=== PATIENT | male | born 1965 | race Caucasian/White ===

== ENCOUNTER 2016-08-22 12:38 | Emergency (ER) | payer OTHER, MEDICAID ==
[~2016-08-22 12:38] MED LIST: LOMO5S PO; ROBITUSSIN AC PO; ZITHTAB PO; ZOFR4TAB3 SL
[2016-08-22 12:46] VITALS: BP 154/110; PULSE 98; RESP 20; TEMP 97.9; O2SAT 96
[2016-08-22] MEDS ORDERED: CLON.5 PO (12:53)
[2016-08-22] MEDS ORDERED: GERD MED (12:53)
[2016-08-22] MEDS ORDERED: MUSCLE SPASM MED (12:53)
[2016-08-22] MEDS ORDERED: RLS MED (12:53)
[2016-08-22] MEDS ORDERED: SODIUM CHLORIDE 0.9% FLUSH 5 ML FLUSH IVF PRN (13:00)
--- NOTE | 2016-08-22 13:04 | PD ---
HPI Chief Complaint: Respiratory Symptoms Time Seen by Provider: 12:43 Travel History International Travel<30 days: No Contact w/Intl Traveler<30days: No Traveled to known affect area: No History of Present Illness HPI Patient 51-year-old male presents with shortness of breath on and off for the past 2 weeks. Patient states that he has been having significant shortness of breath particularly at work when he tries to lift heavy objects or move things around. Patient has not seen another physician for this at this time. Denies any chest pain denies any abdominal pain. Patient states she's also been feeling some dizzy spells at work and feeling like he is about to pass out. When he was feeling stars and had to lower himself down to the ground before he passed out.. Nonsmoker no high blood pressure no high cholesterol. No history of heart disease. 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) GERD: Yes Musculoskeletal: Yes (BACK PROBLEMS) Immunizations Current: No Myocardial Infarction: No Past Surgical History Abdominal Surgery: Yes (Hernia) Appendectomy: Yes Social History Alcohol Use: Yes (2 beers daily) Tobacco Use: No (Quit) Substance Use: No Allergies-Medications (Allergen,Severity, Reaction): Coded Allergies: No Known Allergies (Verified , 08/22/16) Reported Meds & Prescriptions Reported Meds & Active Scripts Active Reported Klonopin (Clonazepam) 0.5 Mg Tab Unknown Dose PO BID [Gerd Med] [Muscle Spasm Med] [Rls Med] Review of Systems Except as stated in HPI: all other systems reviewed are Neg Physical Exam Narrative GENERAL: Well-developed well-nourished no apparent distress SKIN: Warm and dry. HEAD: Atraumatic. Normocephalic. EYES: Pupils equal and round. No scleral icterus. No injection or drainage. ENT: No nasal bleeding or discharge. Mucous membranes pink and moist. NECK: Trachea midline. No JVD. CARDIOVASCULAR: Regular rate and rhythm. No murmur appreciated. 2+ bilateral equal pulses in all 4 extremities RESPIRATORY: No accessory muscle use. Clear to auscultation. Breath sounds equal bilaterally. GASTROINTESTINAL: Abdomen soft, non-tender, nondistended. Hepatic and splenic margins not palpable. MUSCULOSKELETAL: No obvious deformities. No clubbing. No cyanosis. No edema. NEUROLOGICAL: Awake and alert. No obvious cranial nerve deficits. Motor grossly within normal limits. Normal speech. PSYCHIATRIC: Appropriate mood and affect; insight and judgment normal. Data Data Last Documented VS Vital Signs Date Time Temp Pulse Resp B/P Pulse Ox O2 Delivery O2 Flow Rate FiO2 08/22/16 15:06 103 20 149/103 99 Nasal Cannula 4 08/22/16 12:46 97.9 Orders Electrocardiogram (08/22/16 12:57) Ckmb (Isoenzyme) Profile (08/22/16 12:57) Complete Blood Count With Diff (08/22/16 12:57) Comprehensive Metabolic Panel (08/22/16 12:57) Magnesium (Mg) (08/22/16 12:57) Prothrombin Time / Inr (Pt) (08/22/16 12:57) Act Partial Throm Time (Ptt) (08/22/16 12:57) Troponin I (08/22/16 12:57) Chest, Single Ap (08/22/16 12:57) Ecg Monitoring (08/22/16 12:57) Bilateral Bp Monitoring (08/22/16 12:57) Iv Access Insert/Monitor (08/22/16 12:57) Oximetry (08/22/16 12:57) Oxygen Administration (08/22/16 12:57) Sodium Chloride 0.9% Flush (Ns Flush) (08/22/16 13:00) Ct Pulmonary Angiogram (08/22/16 12:57) CKMB (08/22/16 13:15) CKMB% (08/22/16 13:15) Iohexol 350 Inj (Omnipaque 350 Inj) (08/22/16 14:01) Labs Laboratory Tests Test 08/22/16 13:15 White Blood Count 4.8 TH/MM3 Red Blood Count 4.76 MIL/MM3 Hemoglobin 14.8 GM/DL Hematocrit 44.1 % Mean Corpuscular Volume 92.7 FL Mean Corpuscular Hemoglobin 31.0 PG Mean Corpuscular Hemoglobin 33.5 % Concent Red Cell Distribution Width 12.4 % Platelet Count 330 TH/MM3 Mean Platelet Volume 6.4 FL Neutrophils (%) (Auto) 54.6 % Lymphocytes (%) (Auto) 29.8 % Monocytes (%) (Auto) 10.5 % Eosinophils (%) (Auto) 4.3 % Basophils (%) (Auto) 0.8 % Neutrophils # (Auto) 2.7 TH/MM3 Lymphocytes # (Auto) 1.4 TH/MM3 Monocytes # (Auto) 0.5 TH/MM3 Eosinophils # (Auto) 0.2 TH/MM3 Basophils # (Auto) 0.0 TH/MM3 CBC Comment DIFF FINAL Differential Comment Prothrombin Time 10.3 SEC Prothromb Time International 0.9 RATIO Ratio Activated Partial 30.4 SEC Thromboplast Time Sodium Level 138 MEQ/L Potassium Level 4.1 MEQ/L Chloride Level 103 MEQ/L Carbon Dioxide Level 24.2 MEQ/L Anion Gap 11 MEQ/L Blood Urea Nitrogen 13 MG/DL Creatinine 0.80 MG/DL Estimat Glomerular Filtration 102 ML/MIN Rate Random Glucose 99 MG/DL Calcium Level 9.0 MG/DL Magnesium Level 2.2 MG/DL Total Bilirubin 0.4 MG/DL Aspartate Amino Transf 67 U/L (AST/SGOT) Alanine Aminotransferase 99 U/L (ALT/SGPT) Alkaline Phosphatase 106 U/L Total Creatine Kinase 313 U/L Creatine Kinase MB 5.0 NG/ML Creatine Kinase MB % 1.6 % Troponin I LESS THAN 0.02 NG/ML Total Protein 7.6 GM/DL Albumin 3.8 GM/DL MDM Medical Decision Making Medical Screen Exam Complete: Yes Emergency Medical Condition: Yes Interpretation(s) EKG shows normal sinus rhythm with a rate of 95, normal axis normal R-wave progression. No concerning ST T changes intervals within normal limits. This normal EKG. Differential Diagnosis Presyncope, anemia, PE, ACS, AMI Narrative Course Patient was roomed in emergency department, he appears well in no apparent distress. No chest pain but does endorse shortness of breath on exertion accompanied with some presyncopal symptoms. Patient states he came very close to passing out today after lifting heavy objects. Initial workup including EKG troponin CT PE electrolytes H&H all within normal limits. Discussed with the patient that his symptoms are yet unexplained and given his syncope he is not in the low risk syncope category by symphysis discussing to be rules and I suggested that he be observed for possible ACS equivalent. The patient states that he understands the need for stress testing but needs to slat pickler his daughter home has no other way home from daycare this afternoon. I discussed with him that if he chooses to leave he needs to understand that there are risks that he could have cardiovascular collapse or disability prior to having stress test. He verbalized understanding and acceptance of the risks. He has attempted to call and find summary also take care of his daughter for him has been unsuccessful. He did sign formal AMA papers. He states if he can he will return later this afternoon. Diagnosis Primary Impression: Syncope Qualified Code: R55 - Syncope, unspecified syncope type Additional Impression: SOB (shortness of breath) Disposition: 07 AGAINST MEDICAL ADVICE Condition: Lane Cruz MD Aug 22, 2016 13:04 Condition: Lane Cruz MD Aug 22, 2016 13:04
[2016-08-22 13:20] VITALS: O2SAT 96
[2016-08-22 13:26] LABS: AUTOMATED NEUTROPHIL # 2.7 TH/MM3 (1.8-7.7); BASOPHIL % 0.8 % (0.0-2.0); EOSINOPHIL # 0.2 TH/MM3 (0-0.4); EOSINOPHIL % 4.3 % (0.0-4.0); HEMATOCRIT 44.1 % (39.0-51.0); HEMO FLAGS DIFF FINAL; LYMPH % 29.8 % (9.0-44.0); LYMPHOCYTE # 1.4 TH/MM3 (1.0-4.8); MEAN CELL VOLUME 92.7 FL (80.0-100.0); MEAN CORPUSCULAR HGB CONC 33.5 % (32.0-36.0); MONO % 10.5 % (0.0-8.0); NEUT % 54.6 % (16.0-70.0); PLATELET COUNT 330 TH/MM3 (150-450); RED BLOOD COUNT 4.76 MIL/MM3 (4.50-5.90); RED CELL DISTRIBUTION WIDTH 12.4 % (11.6-17.2); WHITE BLOOD COUNT 4.8 TH/MM3 (4.0-11.0)
[2016-08-22 13:28] VITALS: BP_SYST 148; BP_SYST 151; BP_DIAS 95; BP_DIAS 99; PULSE 95; RESP 20; O2SAT 94
[2016-08-22 13:34] LABS: CHLORIDE 103 MEQ/L (98-107); POTASSIUM 4.1 MEQ/L (3.5-5.1); SODIUM (NA) 138 MEQ/L (136-145)
[2016-08-22 13:38] LABS: ANION GAP 11 MEQ/L (5-15); APTT (PATIENT) 30.4 SEC (24.3-30.1); BICARBONATE 24.2 MEQ/L (21.0-32.0); BLOOD UREA NITROGEN 13 MG/DL (7-18); INTERNATIONAL NORMALIZED RATIO 0.9 RATIO; MAGNESIUM 2.2 MG/DL (1.5-2.5); PROTHROMBIN TIME - PATIENT 10.3 SEC (9.8-11.6)
[2016-08-22 13:41] LABS: ALT (GPT) 99 U/L (12-78); AST (GOT) 67 U/L (15-37); GLOMERULAR FILTRATION RATE 102 ML/MIN (>89)
[2016-08-22 13:43] LABS: TOTAL BILIRUBIN ADULT 0.4 MG/DL (0.2-1.0)
[2016-08-22 13:44] LABS: ALKALINE PHOSPHATASE 106 U/L (45-117); CREATINE KINASE 313 U/L (39-308)
[2016-08-22] MEDS ORDERED: IOHEXOL 350 MG/ML 10 ML VIAL (for RAD DIAG) IV ONE (14:01)
--- NOTE | 2016-08-22 14:08 | RADHPO ---
EXAM DATE/TIME: 08/22/2016 13:23 [facility] COMPARISON: No previous studies available for comparison. INDICATIONS : Shortness of breath. MEDICAL HISTORY : None. SURGICAL HISTORY : None. ENCOUNTER: Initial ACUITY: 2 weeks PAIN SCORE: 0/10 LOCATION: Bilateral chest FINDINGS: A single view of the chest demonstrates the lungs to be symmetrically aerated without evidence of mas s, infiltrate or effusion. The cardiomediastinal contours are unremarkable. Osseous structures are intact. CONCLUSION: No evidence of acute cardiopulmonary disease. Robert Lepe MD on August 22, 2016 at 14:06 Board Certified Radiologist. This report was verified electronically.
--- NOTE | 2016-08-22 14:23 | RADHPO ---
EXAM DATE/TIME: 08/22/2016 13:52 [facility] COMPARISON: No previous studies available for comparison. INDICATIONS : Short of breath. IV CONTRAST: 65 cc Omnipaque 350 (iohexol) IV RADIATION DOSE: 20.27 CTDIvol (mGy) MEDICAL HISTORY : Hypercholesterolemia. SURGICAL HISTORY : Appendectomy. ENCOUNTER: Initial ACUITY: 1 day PAIN SCALE: 0/10 LOCATION: chest TECHNIQUE: Volumetric scanning of the chest was performed using a pulmonary embolism protocol MIP images were re constructed. Using automated exposure control and adjustment of the mA and/or kV according to patien t size, radiation dose was kept as low as reasonably achievable to obtain optimal diagnostic quality images. FINDINGS: PULMONARY ARTERIES: No filling defects are seen in the pulmonary arteries through the segmental level. LUNGS: There is no consolidation or pneumothorax . No concerning pulmonary nodule is visualized. PLEURAE: There is no pleural thickening or pleural effusion. MEDIASTINUM: There is good visualization of the great vessels of the middle mediastinum. No evidence of mediastin al or hilar adenopathy/mass. MUSCULOSKELETAL: Within normal limits for patient age. MISCELLANEOUS: The visualized upper abdominal organs demonstrate no acute abnormality. CONCLUSION: No pulmonary embolus or other acute abnormality demonstrated. Robert Lepe MD on August 22, 2016 at 14:20 Board Certified Radiologist. This report was verified electronically.
[2016-08-22 15:06] VITALS: BP 149/103
--- NOTE | 2016-08-23 10:48 | EKG ---
Date Performed: 08/22/2016 Time Performed: 12:48:26 PTAGE: 51 years EKG: Sinus rhythm Normal ECG PREVIOUS TRACING : 07/22/2011 08.04 Compared to prior tracing no significant change DOCTOR: Cullen Ferreira Interpretating Date/Time 08/23/2016 10:46:34
[2016-08-23] MEDS ORDERED: PANT40TA3 PO (18:04)
[2016-08-23] MEDS ORDERED: FLUO20CA4 PO (18:04)
[2016-08-23] MEDS ORDERED: CYCL1TAB29 PO (18:04)
[2016-08-23] MEDS ORDERED: AMLO5TAB2 PO (18:09)
== END 2016-08-22 15:08 | disposition left against medical advice (07) ==
LOC: PHED 12:38
DX: R55 Syncope and collapse (principal); R06.02 Shortness of breath; E78.00 Pure hypercholesterolemia, unspecified
CPT/HCPCS: 71010; 71275; 80053; 82550; 82552; 83735; 84484; 85025; 85610; 85730; 93005; 99285; Q9967

== ENCOUNTER 2016-08-22 15:35 | Observation (INO) | payer OTHER, MEDICAID ==
[~2016-08-22] VITALS: Ht 172.7 cm; Wt 92.8 kg
[~2016-08-22 15:35] MED LIST changes: +CLON.5 PO; +GERD MED; +MUSCLE SPASM MED; +RLS MED
[2016-08-22 15:38] VITALS: BP 140/102; PULSE 87; RESP 16; TEMP 98.3; O2SAT 94
--- NOTE | 2016-08-22 15:44 | PD ---
HPI Chief Complaint: Respiratory Symptoms Time Seen by Provider: 15:41 Travel History International Travel<30 days: No Contact w/Intl Traveler<30days: No Traveled to known affect area: No History of Present Illness HPI This 51-year-old male with a history of shortness of breath and presyncopal symptoms with exertion. He was seen by me earlier today and left AGAINST MEDICAL ADVICE and take care of his daughter. I discussed with him at the end of his workup that his syncopal episodes with shortness of breath could be ACS equivalent recommended observation status. He returns be placed in observation status this time. Please see my earlier note for further history. 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) GERD: Yes Musculoskeletal: Yes (BACK PROBLEMS) Immunizations Current: No Myocardial Infarction: No Past Surgical History Abdominal Surgery: Yes (Hernia) Appendectomy: Yes Social History Alcohol Use: Yes (2 beers daily) Tobacco Use: No (Quit) Substance Use: No Allergies-Medications (Allergen,Severity, Reaction): Coded Allergies: No Known Allergies (Verified , 08/22/16) Reported Meds & Prescriptions Reported Meds & Active Scripts Active Reported Klonopin (Clonazepam) 0.5 Mg Tab Unknown Dose PO BID [Gerd Med] [Muscle Spasm Med] [Rls Med] Review of Systems Except as stated in HPI: all other systems reviewed are Neg Physical Exam Narrative GENERAL: Well-developed well-nourished no apparent distress SKIN: Warm and dry. HEAD: Atraumatic. Normocephalic. EYES: Pupils equal and round. No scleral icterus. No injection or drainage. ENT: No nasal bleeding or discharge. Mucous membranes pink and moist. NECK: Trachea midline. No JVD. CARDIOVASCULAR: Regular rate and rhythm. No murmur appreciated. 2+ bilateral equal pulses in all 4 extremities. RESPIRATORY: No accessory muscle use. Clear to auscultation. Breath sounds equal bilaterally. GASTROINTESTINAL: Abdomen soft, non-tender, nondistended. Hepatic and splenic margins not palpable. MUSCULOSKELETAL: No obvious deformities. No clubbing. No cyanosis. No edema. NEUROLOGICAL: Awake and alert. No obvious cranial nerve deficits. Motor grossly within normal limits. Normal speech. PSYCHIATRIC: Appropriate mood and affect; insight and judgment normal. Data Data Last Documented VS Vital Signs Date Time Temp Pulse Resp B/P Pulse Ox O2 Delivery O2 Flow Rate FiO2 08/22/16 15:38 98.3 87 16 140/102 94 Orders Electrocardiogram (08/22/16 ) Troponin I (08/22/16 15:41) Place In Observation (08/22/16 16:59) Activity Bed Rest With Brp (08/22/16 16:59) Vital Signs (Adult) Q4H (08/22/16 16:59) Cardiac Rhythm .As Directed (08/22/16 16:59) ^ Notify Dr: Other .PRN (08/22/16 16:59) ^ Notify Dr. Parameters (08/22/16 16:59) Resp Oxygen Nasal Cannula (08/22/16 ) Ckmb (Isoenzyme) Profile (08/22/16 19:59) Troponin I (08/22/16 19:59) ^ Obtain (08/22/16 16:59) Sodium Chloride 0.9% Flush (Ns Flush) (08/22/16 17:00) Sodium Chloride 0.9% Flush (Ns Flush) (08/22/16 21:00) Acetaminophen (Tylenol) (08/22/16 17:00) Ondansetron Inj (Zofran Inj) (08/22/16 17:00) Famotidine (Pepcid) (08/22/16 21:00) Nitroglycerin Sl (Nitrostat Sl) (08/22/16 17:00) Aspirin (Aspirin) (08/23/16 09:00) Temazepam (Restoril) (08/22/16 17:00) Hot Walker / Telemetry INES.Q8H (08/22/16 16:59) Admit Order (Ed Use Only) (08/22/16 ) CKMB (08/22/16 20:25) CKMB% (08/22/16 20:25) Labs Laboratory Tests Test 08/22/16 15:45 Troponin I LESS THAN 0.02 NG/ML MDM Medical Decision Making Medical Screen Exam Complete: Yes Emergency Medical Condition: Yes Interpretation(s) EKG shows normal sinus rhythm normal axis and normal hour progression. No concerning ST-T changes. Intervals within normal limits. This is normal EKG. Differential Diagnosis ACS, AMI, syncope, low H&H. Narrative Course Patient was re-roomed in the emergency department, he is ambulating and he continues to appear well. Discussed with him the plan is not altered and well send repeat EKG and troponin. The patient was discussed with Dr. Larson for observation status for consideration of stress testing. Diagnosis Primary Impression: Syncope Qualified Code: R55 - Syncope, unspecified syncope type Additional Impression: SOB (shortness of breath) Admitting Information Admitting Physician Requests: Observation Condition: Stable Lane Sawyer MD Aug 22, 2016 15:44
[2016-08-22] MEDS ORDERED: NITROGLYCERIN 0.4 MG SL 25 TABS/BTL SL PRN (17:00)
[2016-08-22] MEDS ORDERED: ACETAMINOPHEN 500 MG CPLT PO PRN (17:00)
[2016-08-22] MEDS ORDERED: ONDANSETRON HCL 4 MG/2 ML VIAL IV PRN (17:00)
[2016-08-22] MEDS ORDERED: TEMAZEPAM 15 MG CAP PO PRN (17:00)
[2016-08-22] MEDS ORDERED: SODIUM CHLORIDE 0.9% FLUSH 5 ML FLUSH IVF PRN (17:00)
[2016-08-22 17:23] VITALS: BP 144/98; PULSE 80; RESP 16; O2SAT 96
[2016-08-22 18:09] VITALS: O2SAT 95
[2016-08-22 18:45] VITALS: BP 139/97; PULSE 94; RESP 20; TEMP 98.4; O2SAT 96
[2016-08-22 20:00] VITALS: BP 139/97; PULSE 81; PULSE 94; RESP 20; TEMP 98.4; O2SAT 96
[2016-08-22 20:15] VITALS: O2SAT 98
[2016-08-22 21:00] LABS: CREATINE KINASE 235 U/L (39-308)
[2016-08-22 21:13] LABS: CKMB 3.8 NG/ML (0.5-3.6)
[2016-08-22 21:59] LABS: CHLORIDE 100 MEQ/L (98-107); POTASSIUM 3.7 MEQ/L (3.5-5.1); SODIUM (NA) 137 MEQ/L (136-145)
[2016-08-22 22:03] LABS: ANION GAP 12 MEQ/L (5-15); BICARBONATE 25.2 MEQ/L (21.0-32.0); BLOOD UREA NITROGEN 12 MG/DL (7-18)
[2016-08-22 22:05] LABS: ALT (GPT) 87 U/L (12-78)
[2016-08-22 22:06] LABS: AST (GOT) 46 U/L (15-37); GLOMERULAR FILTRATION RATE 87 ML/MIN (>89)
[2016-08-22 22:07] LABS: TOTAL BILIRUBIN ADULT 0.5 MG/DL (0.2-1.0)
[2016-08-22 22:08] LABS: ALKALINE PHOSPHATASE 98 U/L (45-117)
[2016-08-22] MEDS: FAMOTIDINE 20 MG TAB PO SCH (23:03)
[2016-08-22] MEDS: CYCLOBENZAPRINE HCL 10 MG TAB PO PRN (23:03)
[2016-08-22] MEDS: KETOROLAC TROMETHAMINE 60 MG/2 ML (IM) VIAL IM PRN (23:04)
[2016-08-22] MEDS: SODIUM CHLORIDE 0.9% FLUSH 5 ML FLUSH IVF SCH (23:05)
[2016-08-22 23:23] LABS: CREATINE KINASE 218 U/L (39-308)
[2016-08-22 23:36] LABS: CKMB 3.4 NG/ML (0.5-3.6)
[2016-08-23] VITALS: BP 146/94; PULSE 72; RESP 20; TEMP 97.1; O2SAT 98
[2016-08-23 04:00] VITALS: BP 147/98; PULSE 66; RESP 20; TEMP 97; O2SAT 96
[2016-08-23 08:00] VITALS: BP 135/100; PULSE 71; RESP 20; TEMP 98.3; O2SAT 96
[2016-08-23 08:53] VITALS: O2SAT 98
[2016-08-23] MEDS: SODIUM CHLORIDE 0.9% FLUSH 5 ML FLUSH IVF SCH (09:00)
[2016-08-23] MEDS ORDERED: ASPIRIN 325 MG TAB PO SCH (09:00)
[2016-08-23] MEDS: FAMOTIDINE 20 MG TAB PO SCH (09:00)
[2016-08-23] MEDS: CYCLOBENZAPRINE HCL 10 MG TAB PO PRN (09:21)
[2016-08-23 09:40] LABS: HDL CHOLESTEROL 60.5 MG/DL (40.0-60.0)
--- NOTE | 2016-08-23 10:48 | EKG ---
Date Performed: 08/22/2016 Time Performed: 15:49:36 PTAGE: 51 years EKG: Sinus rhythm Normal ECG PREVIOUS TRACING : 08/22/2016 12.48 Compared to prior tracing no significant change DOCTOR: Cullen Ferreira Interpretating Date/Time 08/23/2016 10:46:42
--- NOTE | 2016-08-23 10:48 | EKG ---
Date Performed: 08/22/2016 Time Performed: 22:43:06 PTAGE: 51 years EKG: Sinus rhythm Normal ECG PREVIOUS TRACING : 08/22/2016 15.49 Compared to prior tracing no significant change DOCTOR: Cullen Ferreira Interpretating Date/Time 08/23/2016 10:46:49
[2016-08-23] MEDS ORDERED: FLUoxetine HCL 20 MG CAP PO SCH (11:00)
[2016-08-23] MEDS ORDERED: PANTOPRAZOLE SOD 40 MG DELAYED RELEASE TAB PO SCH (11:00)
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
[2016-08-23 12:00] VITALS: BP 136/97; PULSE 84; RESP 18; TEMP 98; O2SAT 96
[2016-08-23] MEDS: KETOROLAC TROMETHAMINE 60 MG/2 ML (IM) VIAL IM PRN (14:17)
[2016-08-23 15:55] VITALS: RESP 18
[2016-08-23] MEDS ORDERED: REGADENOSON INJ 0.4 MG/5 ML SYR IV ONE (16:06)
--- NOTE | 2016-08-23 17:47 | RADHPO ---
EXAM DATE/TIME: 08/23/2016 16:25 [facility] COMPARISON: No previous studies available for comparison. INDICATIONS : Chest pressure, shortness of breath and presyncope. Angina. DOSE: 25.9 mCi Tc99m Myoview at stress. 8.1 mCi Tc99m Myoview at rest. 0.4 mg Lexiscan STRESS SYMPTOMS: Shortness of breath, right chest pressure and nausea. EJECTION FRACTION: 51% MEDICAL HISTORY : Hypertension. Smoking history. SURGICAL HISTORY : Inguinal hernia repair. Appendectomy. ENCOUNTER: Initial ACUITY: 1 day PAIN SCALE: 2/10 LOCATION: Bilateral chest TECHNIQUE: The patient underwent pharmacologic stress with infusion of prescribed dose. Continuous ECG tracing was monitored during stress. Gated SPECT imaging was performed after stress and conventional SPECT i maging was performed at rest. The examination was performed on a SPECT/CT scanner, both attenuation and non-corrected datasets were reviewed. FINDINGS: DISTRIBUTION: The maximum perfused segment at stress is in the anterolateral wall. PERFUSION STUDY: The pattern of perfusion at stress is within normal limits. GATED STUDY: There is intact wall motion and thickening without hypokinetic or dyskinetic segments. CONCLUSION: 1. No significant reversibility to suggest ischemia. 2. Normal wall motion with ejection fraction 51% RISK CATEGORY: Low (<1% Annual Mortality Rate) Bud Alba MD on August 23, 2016 at 17:44 Board Certified Radiologist. This report was verified electronically.
[2016-08-23] MEDS ORDERED: FLUO20CA4 PO (18:04)
[2016-08-23] MEDS ORDERED: PANT40TA3 PO (18:04)
[2016-08-23] MEDS ORDERED: CYCL1TAB29 PO (18:04)
[2016-08-23] MEDS ORDERED: AMLO5TAB2 PO (18:09)
[2016-08-23] MEDS ORDERED: amLODIPine BESYLATE 5 MG TAB PO SCH (18:15)
== END 2016-08-23 18:45 | disposition home or self-care (01) ==
LOC: PHED 15:35 → PHEDA 17:06 → PH3A 18:42
PROVIDERS: ADMIT Legal Medicine; ATTEND Legal Medicine
DX: R55 Syncope and collapse (principal); R06.09 Other forms of dyspnea; K21.9 Gastro-esophageal reflux disease without esophagitis; F41.9 Anxiety disorder, unspecified; G25.81 Restless legs syndrome; F32.9 Major depressive disorder, single episode, unspecified; E78.00 Pure hypercholesterolemia, unspecified; Z87.891 Personal history of nicotine dependence
CPT/HCPCS: 78452; 80053; 80061; 82550; 82552; 84484; 93005; 93017; 99285; A9502; G0378; J1885; J2785

== ENCOUNTER 2017-08-13 07:47 | Emergency (ER) | payer MEDICAID, OTHER ==
[~2017-08-13] VITALS: Ht 172.7 cm; Wt 100.0 kg
[~2017-08-13 07:47] MED LIST changes: +AMLO5TAB2 PO; +CYCL10TA PO; +FLUO20CA4 PO; -LOMO5S PO; +PANT40TA3 PO; -ROBITUSSIN AC PO; -ZITHTAB PO; -ZOFR4TAB3 SL
[2017-08-13 07:53] VITALS: BP 131/89; PULSE 87; RESP 18; TEMP 97.3; O2SAT 96
[2017-08-13] MEDS ORDERED: ATOR20TA15 PO (08:11)
[2017-08-13] MEDS ORDERED: MONT10TA4 PO (08:11)
[2017-08-13] MEDS ORDERED: ESCI20TA PO (08:11)
[2017-08-13] MEDS ORDERED: PRED50 PO (08:11)
[2017-08-13] MEDS ORDERED: PANT40TA3 PO (08:11)
[2017-08-13] MEDS ORDERED: ROPI5TAB PO (08:11)
[2017-08-13] MEDS ORDERED: FLUO20CA12 PO (08:11)
--- NOTE | 2017-08-13 08:12 | PD ---
HPI Chief Complaint: Edema Time Seen by Provider: 08:01 Travel History International Travel<30 days: No Contact w/Intl Traveler<30days: No Traveled to known affect area: No History of Present Illness HPI This 52-year-old male is complaining of pain in his right knee. He says that he twisted his knee 2 weeks ago. Since then having pain. The pain is a lot worse when he bends the knee. He has been able to walk but he has to use a crutch to help support himself. Sometimes he feels like he is getting about him. He is not aware of any previous injury to the knee. He does have a history of arthritis in his back. 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) Gastrointestinal Disorders: Yes GERD: Yes Headaches: Yes Musculoskeletal: Yes (BACK PROBLEMS) Neurologic: Yes Psychiatric: Yes Respiratory: Yes (COPD) Immunizations Current: No Migraines: Yes Myocardial Infarction: No Past Surgical History Abdominal Surgery: Yes (Hernia, APPENDECTOMY) Appendectomy: Yes Other Surgery: Yes Social History Alcohol Use: Yes (occ) Tobacco Use: No (Quit) Substance Use: No Allergies-Medications (Allergen,Severity, Reaction): Coded Allergies: No Known Allergies (Verified Adverse Reaction, Unknown, 08/13/17) Reported Meds & Prescriptions Reported Meds & Active Scripts Active Amlodipine (Amlodipine Besylate) 5 Mg Tab 5 Mg PO DAILY PRN Reported Escitalopram (Escitalopram Oxalate) 20 Mg Tab 20 Mg PO DAILY Prednisone 50 Mg Tab 50 Mg PO DAILY Ropinirole 5 Mg Tab 5 Mg PO HS Pantoprazole (Pantoprazole Sodium) 40 Mg Tab 40 Mg PO DAILY Montelukast (Montelukast Sodium) 10 Mg Tab 10 Mg PO HS Atorvastatin (Atorvastatin Calcium) 20 Mg Tab 20 Mg PO HS Fluoxetine (Fluoxetine HCl) 20 Mg Capsule 20 Mg PO DAILY Review of Systems General / Constitutional: No: Fever, Chills Eyes: No: Diploplia HENT: No: Headaches, Lightheadedness Cardiovascular: No: Chest Pain or Discomfort, Palpitations Respiratory: No: Cough, Shortness of Breath Gastrointestinal: No: Vomiting, Diarrhea Genitourinary: No: Urgency, Frequency Musculoskeletal: Positive: Myalgias, Arthralgias, Pain Skin: No Rash, No Itching Neurologic: No: Weakness Psychiatric: No: Anxiety Physical Exam Narrative GENERAL: Well-developed male SKIN: Focused skin assessment warm/dry. HEAD: Atraumatic. Normocephalic. EYES: Pupils equal and round. No scleral icterus. No injection or drainage. ENT: No nasal bleeding or discharge. Mucous membranes pink and moist. NECK: Trachea midline. No JVD. MUSCULOSKELETAL: No obvious deformities. No clubbing. No cyanosis. No edema. Examination of the right knee shows some mild edema. There is no obvious varus or valgus instability. Skin is intact. Anterior and posterior drawers are negative. He does have pain with flexion extension of the knee. There is no warmth or erythema NEUROLOGICAL: Awake and alert. No obvious cranial nerve deficits. Motor grossly within normal limits. Normal speech. PSYCHIATRIC: Appropriate mood and affect; insight and judgment normal. Data Data Last Documented VS Vital Signs Date Time Temp Pulse Resp B/P (MAP) Pulse Ox O2 Delivery O2 Flow Rate FiO2 08/13/17 07:53 97.3 87 18 131/89 (103) 96 Orders Orders Knee, Complete (4vws) (08/13/17 08:08) MDM Medical Decision Making Medical Screen Exam Complete: Yes Emergency Medical Condition: Yes Medical Record Reviewed: Yes Differential Diagnosis Differential includes arthritis of the knee, meniscus damage, internal derangement, fracture Narrative Course X-ray is negative. Symptoms are most consistent with a torn meniscus. I will recommend a knee immobilizer and prescription for Mobic. He should call for orthopedic follow-up Diagnosis Primary Impression: Internal derangement of right knee Scripts Meloxicam (Mobic) 15 Mg Tab 15 MG PO DAILY for 20 Days, #20 TAB 0 Refills Prov: Sergo Clarke MD 08/13/17 Disposition: 01 DISCHARGE HOME Condition: Stable Sergo Clarke MD Aug 13, 2017 08:12
[2017-08-13] MEDS ORDERED: MOBI15TA PO (08:52)
--- NOTE | 2017-08-13 08:53 | RADRPT ---
EXAM DATE/TIME: 08/13/2017 08:16 [facility] COMPARISON: No previous studies available for comparison. INDICATIONS : Right knee pain & swelling after twisting it 2 weeks ago. Progressively getting worse & has become di fficult to bear weight & painful bending it. MEDICAL HISTORY : Hypercholesterolemia. Chronic obstructive pulmonary disease. Gastroesophageal reflux disease. Art hritis. SURGICAL HISTORY : Appendectomy. Hernia repair. ENCOUNTER: Initial ACUITY: 2 weeks PAIN SCORE: 8/10 LOCATION: Right knee FINDINGS: Four view examination of the right knee demonstrates no evidence of fracture or dislocation. Bony mi neralization is normal. Mild osteoarthritis. No fracture. Small effusion and soft tissue swelling.. CONCLUSION: 1. Soft tissue swelling and small joint effusion. 2. No fracture seen. Suresh Ba MD on August 13, 2017 at 8:52 Board Certified Radiologist. This report was verified electronically.
== END 2017-08-13 09:21 | disposition home or self-care (01) ==
LOC: PHED 07:47
DX: M23.91 Unspecified internal derangement of right knee (principal); X50.1XXA Overexertion from prolonged static or awkward postures, initial encounter; M46.90 Unspecified inflammatory spondylopathy, site unspecified; E78.00 Pure hypercholesterolemia, unspecified; F32.9 Major depressive disorder, single episode, unspecified; K21.9 Gastro-esophageal reflux disease without esophagitis; J44.9 Chronic obstructive pulmonary disease, unspecified
CPT/HCPCS: 73564; 99283

== ENCOUNTER 2018-04-01 12:29 | Observation (INO) ==
[2018-04-01] MEDS ORDERED: Morphine Inj 4 MG/ML Vial IV.PUSH ONE ×2 (13:15→14:47)
[2018-04-01] MEDS ORDERED: Famotidine PF Inj 20 MG/2 ML Vial IV.PUSH ONE (13:15)
[2018-04-01] MEDS ORDERED: Aluminum/Magnesium/Simethacone Susp 30 ML UDC PO ONE (13:15)
[2018-04-01 13:46] LABS: Baso # (Auto) 0.1 th/mm3 (0.0-0.2); Baso % (Auto) 1.2 % (0.0-2.0); Eos # (Auto) 0.3 th/mm3 (0.0-0.4); Eos % (Auto) 4.1 % (0.0-4.0); Hematocrit 42.5 % (39.0-51.0); Lymph # (Auto) 2.3 th/mm3 (1.0-4.8); Lymph % (Auto) 36.7 % (9.0-44.0); Mean Corpuscular HGB Conc 35.3 % (32.0-36.0); Mean Corpuscular Hemoglobin 32.2 pg (27.0-34.0); Mean Corpuscular Volume 91.2 fL (80.0-100.0); Mean Platelet Volume 6.3 fL (7.0-11.0); Mono # (Auto) 0.5 th/mm3 (0.0-0.9); Mono % (Auto) 8.2 % (0.0-8.0); Neut # (Auto) 3.1 th/mm3 (1.8-7.7); Neut % (Auto) 49.8 % (16.0-70.0); Platelet Count 331 th/mm3 (150-450); Red Blood Count 4.65 mil/mm3 (4.50-5.90); Red Cell Distribution Width 13.4 % (11.6-17.2); White Blood Count 6.2 th/mm3 (4.0-11.0)
--- NOTE | 2018-04-01 13:53 | XR ---
EXAM DATE: 04/01/2018 1:15 PM EDT AGE/SEX: 52 years / Male INDICATIONS: Chest pain. CLINICAL DATA: This is the patient's initial encounter. Patient reports that signs and symptoms have been present for 1 day and indicates a pain score of 4/10. MEDICAL/SURGICAL HISTORY: Hypercholesterolemia. Chronic obstructive pulmonary disease. Gastro esophageal reflux disease. Appendectomy. COMPARISON: POI, XR CHEST PA AND LAT, 07/02/2017. . FINDINGS: No significant new focal pleural or parenchymal opacities. The cardiomediastinal contours are unremar kable. Osseous structures are intact. CONCLUSION: 1. No acute abnormality or significant interval change. Electronically signed by: Sukhi Shipman MD 04/01/2018 1:51 PM EDT
[2018-04-01 13:54] LABS: Prothrombin Time 10.5 sec (9.8-11.6)
[2018-04-01 14:04] LABS: Albumin 3.8 g/dL (3.4-5.0); Anion Gap 10 meq/L (5-15); Aspartate Aminotransferase 62 U/L (15-37); Blood Urea Nitrogen 11 mg/dL (7-18); Calcium 8.6 mg/dL (8.5-10.1); Carbon Dioxide 25.7 meq/L (21.0-32.0); Chloride 105 meq/L (98-107); Glomerular Filtration Rate 89 mL/min (>89); Glucose,Random 105 mg/dL (74-106); Potassium 3.6 meq/L (3.5-5.1); Sodium 141 meq/L (136-145)
[2018-04-01 14:05] LABS: Alanine Aminotransferase 101 U/L (12-78)
[2018-04-01 14:09] LABS: Alkaline Phosphatase 102 U/L (45-117); Total Protein 7.4 g/dL (6.4-8.2)
[2018-04-01 14:11] LABS: Creatine Kinase 82 U/L (39-308)
--- NOTE | 2018-04-01 14:49 | ED ---
HPI General Chief complaint: Chest Pain Stated complaint: Chest Pain Time Seen by Provider: 04/01/18 13:05 Source: patient Mode of arrival: ambulatory Limitations: no limitations History of Present Illness HPI narrative: Patient is a 52 year old male who comes in complaining of chest pain. He says it started about 2 hours prior to arrival. He localizes the pain to the center of the chest. He says it is a stabbing pain and he has never had pain like this before. He denies shortness of breath. He denies nausea or vomiting. He says it started while he was sitting on the couch today. Severity is moderate. Related Data Home Medications Medication Instructions Recorded Confirmed albuterol sulfate [ProAir HFA] 90 mcg INHALATION DAILY 04/01/18 04/01/18 amlodipine 5 mg PO DAILY 04/01/18 04/01/18 atorvastatin 10 mg PO HS 04/01/18 04/01/18 fluoxetine 40 mg PO BID 04/01/18 04/01/18 pantoprazole 40 mg PO DAILY 04/01/18 04/01/18 Allergies Allergy/AdvReac Type Severity Reaction Status Date / Time No Known Allergies Allergy Verified 04/01/18 13:03 Review of Systems ROS: all other systems reviewed are negative Constitutional Denies chills and Denies fever(s) ENT Denies dizziness Cardiovascular Reports chest pain and Denies dyspnea Respiratory Denies cough Gastrointestinal Denies nausea and Denies vomiting Musculoskeletal Denies myalgias and Denies arthralgias Integumentary/Breasts Denies sores and Denies wounds Neurologic Denies focal weakness and Denies numbness [facility] Medical History Medical History COPD (chronic obstructive pulmonary disease) (Acute) GERD (gastroesophageal reflux disease) (Acute) High blood pressure (Acute) High cholesterol (Acute) Social History Social History Substance History: No History of Abuse Smoking Status: Never smoker How Often Do You Have a Drink Containing Alcohol: 4 or more times a week Recent Travel in [facility] within the Last 8 Weeks: No Recent Out of Country Travel within the Last 8 Weeks: No Immunization History Tetanus Immunization: <5 Years Exam Narrative Exam Narrative: GENERAL: Awake and alert, in no acute distress. SKIN: Focused skin assessment warm/dry. No wounds or signs of infection. HEAD: Atraumatic. Normocephalic. EYES: Pupils equal and round. No scleral icterus. ENT: Mucous membranes pink and moist. NECK: Trachea midline. No JVD. CARDIOVASCULAR: Regular rate and rhythm. No murmur appreciated. RESPIRATORY: No accessory muscle use. Clear to auscultation. Breath sounds equal bilaterally. GASTROINTESTINAL: Abdomen soft, nondistended. Mild tenderness to palpation of the epigastric area, no rebound or guarding. MUSCULOSKELETAL: No obvious deformities. No clubbing. No cyanosis. No edema. NEUROLOGICAL: Awake and alert. No obvious cranial nerve deficits. Motor grossly within normal limits. Normal speech. PSYCHIATRIC: Appropriate mood and affect; insight and judgment normal. Course Initial Documented Vital Signs Temperature 98.3 F 04/01/18 12:48 Pulse Rate 83 04/01/18 12:48 Respiratory Rate 22 04/01/18 12:48 Blood Pressure 176/100 H 04/01/18 12:48 Pulse Oximetry 100 04/01/18 12:48 Last Documented Vital Signs Temperature 98.3 F 04/01/18 12:48 Pulse Rate 83 04/01/18 12:48 Respiratory Rate 22 04/01/18 12:48 Blood Pressure 176/100 H 04/01/18 12:48 Pulse Oximetry 100 04/01/18 12:48 Medical Decision Making [facility] Narrative Medical decision making narrative: Patient is a 52-year-old male who comes in chest pain. Exam shows tenderness to the epigastric area, however patient says the pain is in the middle of his chest. IV established, labs sent. First troponin is negative. Labs show no acute abnormalities. Patient was given aspirin and nitro by EMS. Given morphine and GI cocktail here. He says he had some improvement with the morphine, but the pain is coming back. Given additional dose of morphine. Patient be placed in chest pain center for further management. Medical Screen Exam Complete: Yes Emergency Medical Condition: Yes Differential Diagnosis Differential Diagnosis: ACS versus NSTEMI versus STEMI versus GERD versus gastritis Medical Records Medical records reviewed: Yes I reviewed the patient's medical records. Lab Data Lab results reviewed: Yes I reviewed the patient's lab results. Result diagrams: 04/01/18 13:30 04/01/18 13:30 Lab Results 04/01/18 04/01/18 04/01/18 Range/Units 13:30 13:30 13:30 WBC 6.2 (4.0-11.0) th/mm3 RBC 4.65 (4.50-5.90) mil/mm3 Hgb 15.0 (13.0-17.0) gm/dL Hct 42.5 (39.0-51.0) % MCV 91.2 (80.0-100.0) fL MCH 32.2 (27.0-34.0) pg MCHC 35.3 (32.0-36.0) % RDW 13.4 (11.6-17.2) % Plt Count 331 (150-450) th/mm3 MPV 6.3 L (7.0-11.0) fL Neut % (Auto) 49.8 (16.0-70.0) % Lymph % (Auto) 36.7 (9.0-44.0) % [place] % (Auto) 8.2 H (0.0-8.0) % Eos % (Auto) 4.1 H (0.0-4.0) % Baso % (Auto) 1.2 (0.0-2.0) % Neut # (Auto) 3.1 (1.8-7.7) th/mm3 Lymph # (Auto) 2.3 (1.0-4.8) th/mm3 [place] # (Auto) 0.5 (0.0-0.9) th/mm3 Eos # (Auto) 0.3 (0.0-0.4) th/mm3 Baso # (Auto) 0.1 (0.0-0.2) th/mm3 WBC Differential . Differential Comment Auto diff final PT 10.5 (9.8-11.6) sec INR 1.0 Ratio APTT (24.3-30.1) sec Sodium 141 (136-145) meq/L Potassium 3.6 (3.5-5.1) meq/L Chloride 105 (98-107) meq/L Carbon Dioxide 25.7 (21.0-32.0) meq/L Anion Gap 10 (5-15) meq/L BUN 11 (7-18) mg/dL Creatinine 0.90 (0.60-1.30) mg/dL Estimated GFR 89 (>89) mL/min Random Glucose 105 (74-106) mg/dL Calcium 8.6 (8.5-10.1) mg/dL Total Bilirubin 0.2 (0.2-1.0) mg/dL AST 62 H (15-37) U/L ALT 101 H (12-78) U/L Alkaline Phosphatase 102 (45-117) U/L Total Creatine Kinase 82 (39-308) U/L Troponin I Less than 0.02 L (0.02-0.05) ng/mL B-Natriuretic Peptide (0-100) pg/mL Total Protein 7.4 (6.4-8.2) g/dL Albumin 3.8 (3.4-5.0) g/dL 04/01/18 04/01/18 Range/Units 13:30 13:30 WBC (4.0-11.0) th/mm3 RBC (4.50-5.90) mil/mm3 Hgb (13.0-17.0) gm/dL Hct (39.0-51.0) % MCV (80.0-100.0) fL MCH (27.0-34.0) pg MCHC (32.0-36.0) % RDW (11.6-17.2) % Plt Count (150-450) th/mm3 MPV (7.0-11.0) fL Neut % (Auto) (16.0-70.0) % Lymph % (Auto) (9.0-44.0) % Chase % (Auto) (0.0-8.0) % Eos % (Auto) (0.0-4.0) % Baso % (Auto) (0.0-2.0) % Neut # (Auto) (1.8-7.7) th/mm3 Lymph # (Auto) (1.0-4.8) th/mm3 [place] # (Auto) (0.0-0.9) th/mm3 Eos # (Auto) (0.0-0.4) th/mm3 Baso # (Auto) (0.0-0.2) th/mm3 WBC Differential Differential Comment PT (9.8-11.6) sec INR Ratio APTT 25.8 (24.3-30.1) sec Sodium (136-145) meq/L Potassium (3.5-5.1) meq/L Chloride (98-107) meq/L Carbon Dioxide (21.0-32.0) meq/L Anion Gap (5-15) meq/L BUN (7-18) mg/dL Creatinine (0.60-1.30) mg/dL Estimated GFR (>89) mL/min Random Glucose (74-106) mg/dL Calcium (8.5-10.1) mg/dL Total Bilirubin (0.2-1.0) mg/dL AST (15-37) U/L ALT (12-78) U/L Alkaline Phosphatase (45-117) U/L Total Creatine Kinase (39-308) U/L Troponin I (0.02-0.05) ng/mL B-Natriuretic Peptide 6 (0-100) pg/mL Total Protein (6.4-8.2) g/dL Albumin (3.4-5.0) g/dL Imaging Data Radiologist's impression: Chest X-Ray 04/01/18 13:15 CONCLUSION: 1. No acute abnormality or significant interval change. ECG Data EKG Prior to Arrival: Yes Attestation: I personally reviewed and interpreted this ECG as follows: Interpretation: ECG shows normal sinus rhythm at a rate of 86, no ST elevation or depression, normal intervals Discharge Plan Discharge Disposition Patient Disposition: 30 Still Patient Discharge Condition Condition: Stable Discharge Details Diagnosis: Atypical chest pain Physicians Team ED Provider: Chika Tyler Primary Care Provider: Primary Care DavisiCatherine Rxs /Orders / Referrals /Forms Prescriptions: No Action fluoxetine 40 mg Capsule 40 mg PO BID RF: 0 amlodipine 5 mg Tablet 5 mg PO DAILY RF: 0 albuterol sulfate [ProAir HFA] 90 mcg/actuation Hfa Aerosol Inhaler 90 mcg Inhalation DAILY RF: 0 pantoprazole [address] For Susp In Packet 40 mg PO DAILY RF: 0 atorvastatin 10 mg tablet 10 mg PO HS RF: 0 Discharge Instructions Patient Printed Instructions: Chest Pain (ED) Status ED Status: In Room
[2018-04-01] MEDS ORDERED: ALPRAZolam 0.25 MG Tablet PO PRN (15:50)
[2018-04-01] MEDS ORDERED: Acetaminophen 500 MG Tablet PO PRN (15:51)
[2018-04-01] MEDS ORDERED: Ketorolac Inj 30 MG/ML (IVP) Vial IV.PUSH ONE ×2 (16:00→22:00)
--- NOTE | 2018-04-01 16:05 | P.HPCA ---
History of Present Illness Primary Care Physician: No Primary Care Physician Chief Complaint: Chest pain History of Present Illness: This is a 52-year-old male with history of hypertension, hyperlipidemia, COPD, past history of tobacco abuse that presents to ED via [facility] with complaint of chest discomfort patient states discomfort began about 2 hours prior to arrival. Using nothing in particularly strenuous. Describes as a sharp stabbing discomfort. It is still there at this time. The area is tender. Cannot recall trauma. Denies associated shortness of breath however he states he has COPD and gets short of breath easily. Denies nausea or diaphoresis. Cannot recall prior cardiac workup. Denies family history of CAD. History of hypertension, hyperlipidemia, COPD, GERD, past history of tobacco abuse. Denies diabetes and known CAD. Denies family history of CAD. He quit smoking in 2010 but prior that he smoked between three-quarter pack to 1 pack a series daily for about 30 years. Has occasional alcohol. Denies illicit drug use. - Diagnosis (1) Chest pain (2) Hypertension (3) Hyperlipidemia (4) COPD (chronic obstructive pulmonary disease) (5) GERD (gastroesophageal reflux disease) Review of Systems General: Patient denies fevers, chills, and recent travel. HEENT: Patient denies headache, sore throat, difficulty swallowing. Cardiovascular: Has the chest discomfort as mentioned above. Denies sensation of heart beating rapidly or irregularly. No syncope. Respiratory: Denies shortness of breath or inspirational chest discomfort. Denies coughing wheezing or hemoptysis. GI: Patient denies nausea, vomiting, diarrhea, abdominal pain, bloody stools. Musculoskeletal: Patient denies joint pain or edema. Denies calf pain or edema. Neurovascular: Patient denies numbness, tingling, weakness in extremities. Denies headache. Endocrine: Denies polyuria and polydipsia. Hematologic: Denies easy bruising. Skin: Denies rash or itching. PMFSH - History History Provided By: Patient - Medical History Medical History: Medical History (Last Reviewed 04/01/18 @ 14:51 by Chika Tyler MD) COPD (chronic obstructive pulmonary disease) GERD (gastroesophageal reflux disease) High blood pressure High cholesterol - Tobacco History Smoking Status: Never smoker - Alcohol History How Often Do You Have a Drink Containing Alcohol: 4 or more times a week - Substance Use History Substance History: No History of Abuse - Travel History Recent Travel in the [place] Within the Last 8 Weeks: No Recent Travel Out of the Country Within the Last 8 Weeks: No - Immunization History Tetanus Immunization: <5 Years Medications and Allergies Active Medications: Active Medications Acetaminophen (Tylenol) 500 mg PO Q6H PRN PRN Reason: pain scale 1-5 Hydrocodone Bitart/Acetaminophen (Palmer 7.5/325) 1 tab PO Q6H PRN PRN Reason: pain scale 6-10 Albuterol (Duoneb Neb (Prn)) 1 ampul NEB Q4HR NEB PRN PRN Reason: SHORTNESS OF BREATH/WHEEZING Alprazolam (Xanax) 0.25 mg PO Q8H PRN PRN Reason: ANXIETY Amlodipine Besylate (Norvasc) 5 mg PO DAILY LISA Aspirin (Aspirin) 325 mg PO DAILY LISA Clonidine HCl (Catapres) 0.1 mg PO Q6H PRN PRN Reason: SBP >165 OR DBP > 110 Ketorolac Tromethamine (Toradol Inj) 30 mg IV.PUSH ONCE ONE Stop: 04/01/18 15:39 Non-Formulary Medication (Atorvastatin) 10 mg PO HS LISA Non-Formulary Medication (Fluoxetine [Fluoxetine]) 40 mg PO BID LISA Ondansetron HCl (Zofran Inj) 4 mg IV.PUSH Q6H PRN PRN Reason: NAUSEA Pantoprazole Sodium (Protonix) 40 mg PO DAILY LISA Sodium Chloride (Ns Flush) 2 ml IV.FLUSH UNSCH PRN PRN Reason: FLUSH AFTER USING IV ACCESS Sodium Chloride (Ns Flush) 2 ml IV.FLUSH BID LISA Sodium Chloride (Ns Flush) 2 ml IV.FLUSH PRN PRN PRN Reason: FLUSH AFTER USING IV ACCESS Allergies Allergy/AdvReac Type Severity Reaction Status Date / Time No Known Allergies Allergy Verified 04/01/18 13:03 Home Medications Medication Instructions Recorded Confirmed Type albuterol sulfate [ProAir HFA] 90 mcg INHALATION DAILY 04/01/18 04/01/18 History amlodipine 5 mg PO DAILY 04/01/18 04/01/18 History atorvastatin 10 mg PO HS 04/01/18 04/01/18 History fluoxetine 40 mg PO BID 04/01/18 04/01/18 History pantoprazole 40 mg PO DAILY 04/01/18 04/01/18 History Exam Vital signs: Vital Signs 04/01/18 12:48 Temperature 98.3 F Pulse Rate 83 Respiratory Rate 22 Blood Pressure 176/100 H Pulse Oximetry 100 Intake & Output 03/31/18 04/01/18 04/01/18 18:59 06:59 18:59 Weight 100 kg Narrative: GENERAL: This is a well-nourished, well-developed patient, in no apparent distress. Patient speaks in clear complete sentences. Patient is pleasant. HEENT: Head is atraumatic and normocephalic. Neck is supple without lymphadenopathy and trachea is midline. No JVD or carotid bruits. CARDIOVASCULAR: Regular rate and rhythm without murmurs, gallops, or rubs. RESPIRATORY: Clear to auscultation. Breath sounds equal bilaterally. No wheezes , rales, or rhonchi. Chest wall is tender worsening the discomfort that brought him to the ED. No use of accessory muscles. GASTROINTESTINAL: Abdomen is nontender, nondistended. Abdomen soft. No obvious pulsatile mass or bruit. No CVA tenderness. Strong femoral pulses bilaterally. Normal bowel sounds in all quadrants. MUSCULOSKELETAL: Patient is moving upper and lower extremities freely. No calf tenderness or edema, no Homans sign. Strong pulses in upper and lower extremities. NEUROLOGICAL: Patient is alert and oriented. Cranial nerves 2-12 are grossly intact. No focal deficits and speech is clear. SKIN: No rash and turgor is normal. Results 04/01/18 13:30 04/01/18 13:30 Cardiac Enzymes 04/01/18 04/01/18 Range/Units 13:30 13:30 AST 62 H (15-37) U/L Troponin I Less than 0.02 L (0.02-0.05) ng/mL B-Natriuretic Peptide 6 (0-100) pg/mL Coagulation 04/01/18 04/01/18 04/01/18 Range/Units 13:30 13:30 13:30 PT 10.5 (9.8-11.6) sec APTT 25.8 (24.3-30.1) sec B-Natriuretic Peptide 6 (0-100) pg/mL CBC 04/01/18 Range/Units 13:30 WBC 6.2 (4.0-11.0) th/mm3 RBC 4.65 (4.50-5.90) mil/mm3 Hgb 15.0 (13.0-17.0) gm/dL Hct 42.5 (39.0-51.0) % Plt Count 331 (150-450) th/mm3 Neut # (Auto) 3.1 (1.8-7.7) th/mm3 Lymph # (Auto) 2.3 (1.0-4.8) th/mm3 [place] # (Auto) 0.5 (0.0-0.9) th/mm3 Eos # (Auto) 0.3 (0.0-0.4) th/mm3 Baso # (Auto) 0.1 (0.0-0.2) th/mm3 Comprehensive Metabolic Panel 04/01/18 Range/Units 13:30 Sodium 141 (136-145) meq/L Potassium 3.6 (3.5-5.1) meq/L Chloride 105 (98-107) meq/L Carbon Dioxide 25.7 (21.0-32.0) meq/L BUN 11 (7-18) mg/dL Creatinine 0.90 (0.60-1.30) mg/dL Calcium 8.6 (8.5-10.1) mg/dL AST 62 H (15-37) U/L ALT 101 H (12-78) U/L Alkaline Phosphatase 102 (45-117) U/L Total Protein 7.4 (6.4-8.2) g/dL Albumin 3.8 (3.4-5.0) g/dL Intake and Output 04/01/18 04/01/18 04/01/18 06:59 14:59 22:59 Other: Weight 100 kg Patient Weight 04/02/18 06:59 Weight 100 kg - Imaging and Cardiology Imaging: Impressions Chest X-Ray 04/01/18 13:15 CONCLUSION: 1. No acute abnormality or significant interval change. EKG interpretations - EKG EKG shows: sinus rhythm (Initial EKG is sinus rhythm without significant ST segment depressions or elevations.) Caprini VTE Risk Assessment Caprini VTE Risk Assessment: No/Low Risk (score <= 1) Caprini Risk Assessment Model: Point Value = 1 Point Value = 2 Point Value = 3 Point Value = 5 Age 41-60 Minor surgery BMI > 25 kg/m2 Swollen legs Varicose veins or History of unexplained or recurrent spontaneous Oral contraceptives or hormone replacement Sepsis (< 1 month) Serious lung disease, including pneumonia (< 1 month) Abnormal pulmonary function Acute myocardial infarction Congestive heart failure (< 1 month) History of inflammatory bowel disease Medical patient at bed rest Age 61-74 Arthroscopic surgery Major open surgery (> 45 min) Laparoscopic surgery (> 45 min) Malignancy Confined to bed (> 72 hours) Immobilizing plaster cast Central venous access Age >= 75 History of VTE Family history of VTE Factor V Leiden Prothrombin [id number] Lupus anticoagulant Anticardiolipin antibodies Elevated serum homocysteine Heparin-induced thrombocytopenia Other congenital or acquired thrombophilia Stroke (< 1 month) Elective arthroplasty Hip, pelvis, or leg fracture Acute spinal cord injury (< 1 month) Prophylaxis Regimen: Total Risk Factor Score Risk Level Prophylaxis Regimen 0-1 Low Early ambulation 2 Moderate Order ONE of the following: *Sequential Compression Device (SCD) *Heparin 5000 units SQ BID 3-4 Higher Order ONE of the following medications: *Heparin 5000 units SQ TID *Enoxaparin/Lovenox 40 mg SQ daily (WT < 150 kg, CrCl > 30 mL/min) *Enoxaparin/Lovenox 30 mg SQ daily (WT < 150 kg, CrCl > 10-29 mL/min) *Enoxaparin/Lovenox 30 mg SQ BID (WT < 150 kg, CrCl > 30 mL/min) AND/OR *Sequential Compression Device (SCD) 5 or more Highest Order ONE of the following medications: *Heparin 5000 units SQ TID (Preferred with Epidurals) *Enoxaparin/Lovenox 40 mg SQ daily (WT < 150 kg, CrCl > 30 mL/min) *Enoxaparin/Lovenox 30 mg SQ daily (WT < 150 kg, CrCl > 10-29 mL/min) *Enoxaparin/Lovenox 30 mg SQ BID (WT < 150 kg, CrCl > 30 mL/min) AND *Sequential Compression Device (SCD) Assessment and Plan - Assessment (1) Chest pain Code(s): R07.9 - Chest pain, unspecified Status: Acute (2) Hypertension Code(s): I10 - Essential (primary) hypertension Status: Acute (3) Hyperlipidemia Code(s): E78.5 - Hyperlipidemia, unspecified Status: Acute (4) COPD (chronic obstructive pulmonary disease) Code(s): J44.9 - Chronic obstructive pulmonary disease, unspecified Status: Acute (5) GERD (gastroesophageal reflux disease) Code(s): K21.9 - Gastro-esophageal reflux disease without esophagitis Status: Acute - Plan * Chest pain: Symptoms seem atypical however he has risk factors for CAD. He was seen by Dr. Gonzalez of cardiology in the chest pain center. He will be given a dose of Toradol. He states he would not be able to walk on the treadmill as he gets short of breath to easily even walking. Subsequently if he does well he will have a Lexiscan. Patient will be discharged home if the stress test is nonischemic with instructions to follow-up with PCP. Return to ED for interval issues. * COPD: PRN duo nebs. Resume medication at discharge. * Hypertension: Continue his medication. * Hyperlipidemia: Continue medication. * GERD: Continue medication. Patient is stable at this time. He is agreeable to this plan.
[2018-04-01 17:09] LABS: Creatine Kinase 83 U/L (39-308)
[2018-04-01 18:51] LABS: Creatine Kinase 78 U/L (39-308)
[2018-04-01] MEDS: FLUoxetine 20 MG Capsule PO SCH (20:49)
--- NOTE | 2018-04-02 07:54 | P.PNCA ---
Subjective Interval history: Did not sleep last night and his hungry. Chest discomfort improved with Toradol , unchanged with "pain pill." Midsternum chest sharp pain, made worse with palpation. Discomfort unchanged with position, twisting, or movement. Laying flat does not make discomfort better or worse. Deep breathing makes discomfort "more noticeable." He is hopeful for discharge later this afternoon. Medications and Allergies Active Medications: Active Medications Acetaminophen (Tylenol) 500 mg PO Q6H PRN PRN Reason: pain scale 1-5 Hydrocodone Bitart/Acetaminophen ([place]aman 7.5/325) 1 tab PO Q6H PRN PRN Reason: pain 6-10 IF TOLERATING PO Last Admin: 04/02/18 01:58 Dose: 1 tab Albuterol (Duoneb Neb (Prn)) 1 ampul NEB Q4HR NEB PRN PRN Reason: SHORTNESS OF BREATH/WHEEZING Alprazolam (Xanax) 0.25 mg PO Q8H PRN PRN Reason: ANXIETY Last Admin: 04/01/18 20:52 Dose: 0.25 mg Amlodipine Besylate (Norvasc) 5 mg PO DAILY [facility] Aspirin (Aspirin) 325 mg PO DAILY [facility] Atorvastatin Calcium (Lipitor) 10 mg PO HS [facility] Last Admin: 04/01/18 20:48 Dose: 10 mg Clonidine HCl (Catapres) 0.1 mg PO Q6H PRN PRN Reason: SBP >165 OR DBP > 110 Fluoxetine HCl (Prozac) 40 mg PO BID [facility] Last Admin: 04/01/18 20:49 Dose: 40 mg Ondansetron HCl (Zofran Inj) 4 mg IV.PUSH Q6H PRN PRN Reason: NAUSEA Pantoprazole Sodium (Protonix) 40 mg PO DAILY [facility] Last Admin: 04/01/18 17:34 Dose: 40 mg Sodium Chloride (Ns Flush) 2 ml IV.FLUSH BID [facility] Last Admin: 04/01/18 20:50 Dose: 2 ml Sodium Chloride (Ns Flush) 2 ml IV.FLUSH PRN PRN PRN Reason: FLUSH AFTER USING IV ACCESS Allergies Allergy/AdvReac Type Severity Reaction Status Date / Time No Known Allergies Allergy Verified 04/01/18 13:03 Home Medications Medication Instructions Recorded Confirmed Type albuterol sulfate [ProAir HFA] 90 mcg INHALATION DAILY 04/01/18 04/01/18 History amlodipine 5 mg PO DAILY 04/01/18 04/01/18 History atorvastatin 10 mg PO HS 04/01/18 04/01/18 History fluoxetine 40 mg PO BID 04/01/18 04/01/18 History pantoprazole 40 mg PO DAILY 04/01/18 04/01/18 History Physical Exam Vital signs: Vital Signs 04/01/18 12:48 04/01/18 16:00 04/01/18 16:01 Temperature 98.3 F 97.9 F Pulse Rate 83 77 87 Respiratory Rate 22 12 20 Blood Pressure 176/100 H 164/117 H 164/72 H Pulse Oximetry 100 98 04/01/18 20:00 04/02/18 00:00 04/02/18 04:00 Temperature 98.3 F 98.5 F 98.6 F Pulse Rate 91 H 101 H 94 H Respiratory Rate 18 20 19 Blood Pressure 135/80 130/88 138/103 H Pulse Oximetry 95 95 98 Intake & Output 04/01/18 04/02/18 04/02/18 18:59 06:59 18:59 Weight 106.7 kg Other: Date of Last Bowel Movement 04/01/18 Weight On Admission 106.594 kg - Constitutional no acute distress, cooperative - Routine HEENT Exam Head: Present: normocephalic, atraumatic ENT: Present: mucous membranes moist - Routine Neck Exam Present: supple - Routine Respiratory Exam Present: decreased breath sounds. Absent: respiratory distress, rhonchi, stridor, wheezes, crackles - Routine Cardiovascular Exam Present: RRR, S1, S2. Absent: murmur, gallop, rubs Comments: midsternal chest tender with light palpation - Routine Abdominal Exam Present: soft, normoactive bowel sounds Results 04/01/18 13:30 04/01/18 13:30 Cardiac Enzymes 04/01/18 04/01/18 04/01/18 Range/Units 13:30 13:30 14:15 AST 62 H (15-37) U/L Troponin I Less than 0.02 L Less than 0.02 L (0.02-0.05) ng/mL B-Natriuretic Peptide 6 (0-100) pg/mL 04/01/18 Range/Units 17:45 AST (15-37) U/L Troponin I Less than 0.02 L (0.02-0.05) ng/mL B-Natriuretic Peptide (0-100) pg/mL Coagulation 04/01/18 04/01/18 04/01/18 Range/Units 13:30 13:30 13:30 PT 10.5 (9.8-11.6) sec APTT 25.8 (24.3-30.1) sec B-Natriuretic Peptide 6 (0-100) pg/mL CBC 04/01/18 Range/Units 13:30 WBC 6.2 (4.0-11.0) th/mm3 RBC 4.65 (4.50-5.90) mil/mm3 Hgb 15.0 (13.0-17.0) gm/dL Hct 42.5 (39.0-51.0) % Plt Count 331 (150-450) th/mm3 Neut # (Auto) 3.1 (1.8-7.7) th/mm3 Lymph # (Auto) 2.3 (1.0-4.8) th/mm3 Mckenzie # (Auto) 0.5 (0.0-0.9) th/mm3 Eos # (Auto) 0.3 (0.0-0.4) th/mm3 Baso # (Auto) 0.1 (0.0-0.2) th/mm3 Comprehensive Metabolic Panel 04/01/18 Range/Units 13:30 Sodium 141 (136-145) meq/L Potassium 3.6 (3.5-5.1) meq/L Chloride 105 (98-107) meq/L Carbon Dioxide 25.7 (21.0-32.0) meq/L BUN 11 (7-18) mg/dL Creatinine 0.90 (0.60-1.30) mg/dL Calcium 8.6 (8.5-10.1) mg/dL AST 62 H (15-37) U/L ALT 101 H (12-78) U/L Alkaline Phosphatase 102 (45-117) U/L Total Protein 7.4 (6.4-8.2) g/dL Albumin 3.8 (3.4-5.0) g/dL Intake and Output 04/01/18 04/02/18 04/02/18 22:59 06:59 14:59 Other: Date of Last Bowel Movement 04/01/18 Weight 106.7 kg Weight On Admission 106.594 kg - Imaging and Cardiology Imaging: Impressions Chest X-Ray 04/01/18 13:15 CONCLUSION: 1. No acute abnormality or significant interval change. Assessment and Plan - Assessment (1) Chest pain Code(s): R07.9 - Chest pain, unspecified Status: Acute Plan: ACS ruled out overnight. Telemetry reviewed. Previously seen and evaluated by Dr. True Gonzalez. Proceed with Lexiscan as recommended by infection control rn. Patient verbalized understanding and agreeable to plan of care. Discomfort likely musculoskeletal etiology. Toradol 30mg IV x1 dose. Received x2 doses Toradol yesterday which improved discomfort. (2) Hypertension Code(s): I10 - Essential (primary) hypertension Status: Chronic Plan: Continue to monitor. Vitals reviewed. Amlodipine previously continued. (3) Hyperlipidemia Code(s): E78.5 - Hyperlipidemia, unspecified Status: Chronic Plan: Atorvastatin continued. (4) COPD (chronic obstructive pulmonary disease) Code(s): J44.9 - Chronic obstructive pulmonary disease, unspecified Status: Chronic Plan: Duoneb PRN previously ordered. SPo2 stable, no resp distress. Follow up with PCP as previously instructed. (5) GERD (gastroesophageal reflux disease) Code(s): K21.9 - Gastro-esophageal reflux disease without esophagitis Status: Chronic Plan: Protonix continued. - Plan * Chest pain: Symptoms seem atypical however he has risk factors for CAD. He was seen by Dr. Gonzalez of cardiology in the chest pain center. He will be given a dose of Toradol. He states he would not be able to walk on the treadmill as he gets short of breath to easily even walking. Subsequently if he does well he will have a Lexiscan. Patient will be discharged home if the stress test is nonischemic with instructions to follow-up with PCP. Return to ED for interval issues. * COPD: PRN duo nebs. Resume medication at discharge. * Hypertension: Continue his medication. * Hyperlipidemia: Continue medication. * GERD: Continue medication. Patient is stable at this time. He is agreeable to this plan. (2) Hypertension Qualifiers: Hypertension type: unspecified Qualified Code(s): I10 - Essential (primary) hypertension (3) Hyperlipidemia Qualifiers: Hyperlipidemia type: unspecified Qualified Code(s): E78.5 - Hyperlipidemia, unspecified (5) GERD (gastroesophageal reflux disease) Qualifiers: Esophagitis presence: esophagitis presence not specified Qualified Code(s): K21.9 - Gastro-esophageal reflux disease without esophagitis
[2018-04-02] MEDS ORDERED: Ketorolac Inj 30 MG/ML (IVP) Vial IV.PUSH ONE (08:00)
[2018-04-02] MEDS ORDERED: amLODIPine 5 MG Tablet PO SCH (09:00)
[2018-04-02] MEDS ORDERED: Aspirin 325 MG Tablet PO SCH (09:00)
[2018-04-02] MEDS: FLUoxetine 20 MG Capsule PO SCH (09:23)
--- NOTE | 2018-04-02 09:49 | ECG ---
Date Performed: 04/01/2018 Time Performed: 16:07:11 PTAGE: 52 years EKG: Sinus rhythm NORMAL ECG PREVIOUS TRACING : 08/22/2016 22.43 DOCTOR: Artur Man Interpretating Date/Time 04/02/2018 09:48:34
--- NOTE | 2018-04-02 09:49 | ECG ---
Date Performed: 04/01/2018 Time Performed: 18:14:43 PTAGE: 52 years EKG: Sinus rhythm NORMAL ECG PREVIOUS TRACING : 04/01/2018 16.07 DOCTOR: Artur Man Interpretating Date/Time 04/02/2018 09:48:27
--- NOTE | 2018-04-02 09:49 | ECG ---
Date Performed: 04/01/2018 Time Performed: 12:37:11 PTAGE: 52 years EKG: Sinus rhythm NORMAL ECG NO PREVIOUS TRACING DOCTOR: Artur Man Interpretating Date/Time 04/02/2018 09:48:42
[2018-04-02] MEDS ORDERED: Regadenoson Inj 0.4 MG/5 ML Syringe IV.PUSH ONE (10:42)
--- NOTE | 2018-04-02 11:54 | NM ---
EXAM DATE: 04/02/2018 9:36 AM EDT AGE/SEX: 52 years / Male INDICATIONS:Angina. . Chest pain. CLINICAL DATA: This is the patient's initial encounter. Patient reports that signs and symptoms have been present for 1 day and indicates a pain score of 6/10. MEDICAL/SURGICAL HISTORY: Hypercholesterolemia. Hypertension. Chronic obstructive pulmonary d isease. None. COMPARISON: [facility], MYOCARDIAL PERF PHARM SPECT, 08/23/2016. . DOSE: 11 mCi Tc 99m Myoview at rest 35 mCi [id number] at stress 0.4 mg Lexiscan STRESS SYMPTOMS: Short of breath. EJECTION FRACTION: 62 % TECHNIQUE: The patient underwent pharmacologic stress with infusion of prescribed dose. Continuous ECG tracing was monitored during stress. Gated SPECT imaging was performed after stress and conventi onal SPECT imaging was performed at rest. The examination was performed on a SPECT/CT scanner, both attenuation and non-corrected datasets were reviewed. FINDINGS: Distribution: The maximum perfused segment at stress is in the lateral wall. Perfusion Study: Small fixed apical defect. No definite reversible perfusion defects are identified . Gated Study: There are intact wall motion and wall thickening without hypokinetic or dyskinetic segm ents. The ejection fraction is calculated at 62%. RISK CATEGORY: Low (<1% Annual Motality Rate) CONCLUSION: 1. No definite reversible perfusion defects are identified to suggest stress-induced myocardial isch emia. 2. Normal ejection fraction and wall motion. Electronically signed by: Wiliam Santiago MD 04/02/2018 11:52 AM EDT
[2018-04-02 12:40] VITALS: BP 142/94; PULSE 86; RESP 18; TEMP 98.3; O2SAT 95
--- NOTE | 2018-04-02 16:11 | TR ---
Date Performed: 04/02/2018 Time Performed: 10:55:55 DOCTOR: Artur Man DRUG LIST: CLINICAL HISTORY: REASON FOR TEST: REASON FOR ENDING: OBSERVATION: CONCLUSION: Lexiscan stress test was performed under standard four minute protocol. Radionuclide was injected one minute prior to ending the test. No electrocardiographic abormalities were present to suggest ischemia. Nuclear imaging and interpretation are pending. COMMENTS:
== END 2018-04-02 14:55 | disposition home or self-care (01) ==
LOC: NEDA 12:29 → NEPE 12:29 → NEPGCP 15:56